=== PATIENT | female | born 1995 | race Two or more races ===

== ENCOUNTER 2022-09-30 14:03 | Emergency (ER) | payer MEDICAID ==
[~2022-09-30] VITALS: Ht 165.1 cm; Wt 57.2 kg
[2022-09-30] MEDS ORDERED: CARI350T PO (15:20)
[2022-09-30 15:35] VITALS: BP 108/58; TEMP 98.3; O2SAT 98
== END 2022-09-30 15:37 | disposition home or self-care (01) ==
LOC: ER 14:11
DX: M54.6 Pain in thoracic spine (principal)
CPT/HCPCS: 72074-TC